=== PATIENT | male | born 1955 | race Caucasian/White ===

== ENCOUNTER 2018-06-15 13:54 | Emergency (ER) | payer OTHER ==
[~2018-06-15] VITALS: Ht 160 cm; Wt 64.0 kg
[2018-06-15 14:00] VITALS: BP 114/82
== END 2018-06-15 15:11 | disposition left against medical advice (07) ==
LOC: ED 13:54
DX: Z53.21 Procedure and treatment not carried out due to patient leaving prior to being seen by health care provider (principal)

== ENCOUNTER 2018-06-24 10:06 | Emergency (ER) | payer OTHER ==
[~2018-06-24] VITALS: Ht 157.5 cm; Wt 66.3 kg
[2018-06-24 10:47] VITALS: Ht 157.5 cm; Wt 66.3 kg
[2018-06-24 13:53] VITALS: BP 118/821
== END 2018-06-24 13:45 | disposition home or self-care (01) ==
LOC: ED 10:06
DX: H26.9 Unspecified cataract (principal); L30.9 Dermatitis, unspecified; L29.9 Pruritus, unspecified; I10 Essential (primary) hypertension; E11.9 Type 2 diabetes mellitus without complications; Z86.73 Personal history of transient ischemic attack (TIA), and cerebral infarction without residual deficits; Z88.8 Allergy status to other drugs, medicaments and biological substances